=== PATIENT | male | born 1970 | race Caucasian/White ===

== ENCOUNTER 2016-10-19 20:31 | Emergency (ER) | payer MEDICAID ==
[~2016-10-19] VITALS: Ht 203.2 cm; Wt 79.1 kg
[~2016-10-19 20:31] MED LIST: ALBU18HF INH; AZIT250T PO; BENZ100C PO; SULF1TAB24 PO
[2016-10-19 20:33] VITALS: BP 119/79
[2016-10-19 22:19] LABS: HEMOGLOBIN 13.1 g/dL (13.7-18.0)
[2016-10-19 22:30] LABS: ASPARTATE AMINO TRANSFERASE 19 U/L (15-37); BLOOD UREA NITROGEN 11 mg/dL (7-18)
[2016-10-19] MEDS ORDERED: DIPHENHYDRAMINE 25 MG CAPSULE PO ONE (22:30)
[2016-10-19] MEDS ORDERED: KETOROLAC 30 MG/1 ML IM ONE (22:30)
[2016-10-19] MEDS ORDERED: KETOROLAC 30 MG/1 ML ONE (22:42)
[2016-10-19] MEDS ORDERED: DIPHENHYDRAMINE 25 MG CAPSULE ONE (22:42)
== END 2016-10-19 23:23 | disposition home or self-care (01) ==
LOC: ED 23:15
DX: S30.0XXA Contusion of lower back and pelvis, initial encounter (principal); S30.1XXA Contusion of abdominal wall, initial encounter; Y00.XXXA Assault by blunt object, initial encounter; Y93.89 Activity, other specified; Y92.89 Other specified places as the place of occurrence of the external cause; Y99.8 Other external cause status
CPT/HCPCS: 36415; 72110; 80053; 81003; 85025; 96372; 99285; J1885; Q0163

== ENCOUNTER 2016-11-01 11:19 | Emergency (ER) | payer MEDICAID ==
[~2016-11-01] VITALS: Ht 203.2 cm; Wt 78.0 kg
[2016-11-01 13:20] VITALS: BP 112/70
== END 2016-11-01 13:24 | disposition home or self-care (01) ==
LOC: ED 12:52
DX: S91.012A Laceration without foreign body, left ankle, initial encounter (principal); L03.116 Cellulitis of left lower limb; L23.9 Allergic contact dermatitis, unspecified cause; W26.0XXA Contact with knife, initial encounter; Y93.89 Activity, other specified; Y99.8 Other external cause status; Y92.89 Other specified places as the place of occurrence of the external cause
CPT/HCPCS: 99283

== ENCOUNTER 2016-11-23 01:43 | Emergency (ER) | payer MEDICAID ==
[~2016-11-23] VITALS: Ht 205.7 cm; Wt 75.1 kg
[2016-11-23] MEDS ORDERED: ALBUTEROL SULFATE 2.5 MG/3 ML ONE (02:16)
[2016-11-23] MEDS ORDERED: ALBUTEROL SULFATE 2.5 MG/3 ML NPPB ONE (02:30)
[2016-11-23 03:02] VITALS: BP 121/77
== END 2016-11-23 03:03 | disposition home or self-care (01) ==
LOC: ED 02:29
DX: J20.8 Acute bronchitis due to other specified organisms (principal)
CPT/HCPCS: 71020; 99284; J7613

== ENCOUNTER 2018-02-21 22:51 | Emergency (ER) | payer MEDICAID ==
[~2018-02-21] VITALS: Ht 205.7 cm; Wt 74.0 kg
[2018-02-21] MEDS ORDERED: IBUPROFEN 200 MG TABLET ONE (23:27)
[2018-02-21] MEDS ORDERED: HYDROcodone/APAP 5/325 TABLET ONE (23:27)
[2018-02-21] MEDS ORDERED: HYDROcodone/APAP 5/325 TABLET PO PRN (23:30)
[2018-02-21] MEDS ORDERED: IBUPROFEN 200 MG TABLET PO ONE (23:30)
[2018-02-22 00:28] VITALS: BP 105/71
== END 2018-02-22 01:31 | disposition home or self-care (01) ==
LOC: ED 23:49
DX: S70.02XA Contusion of left hip, initial encounter (principal); X58.XXXA Exposure to other specified factors, initial encounter; Y93.89 Activity, other specified; Y99.8 Other external cause status; Y92.89 Other specified places as the place of occurrence of the external cause
CPT/HCPCS: 99284

== ENCOUNTER 2018-11-29 02:11 | Emergency (ER) | payer MEDICAID ==
[~2018-11-29] VITALS: Ht 203.2 cm; Wt 76.0 kg
[2018-11-29 02:13] VITALS: BP 130/82
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
--- NOTE | 2018-11-29 02:55 | NUR ---
pt given dc instructions and script. pt educated regarding dc medication. pt's aox4. resps even and unlabored. pt amb to dc with steady gait. no acute distress at dc.
== END 2018-11-29 02:56 | disposition home or self-care (01) ==
LOC: ED 02:22
DX: L03.115 Cellulitis of right lower limb (principal)
CPT/HCPCS: 99283

== ENCOUNTER 2019-05-23 18:12 | Emergency (ER) | payer MEDICAID ==
[~2019-05-23] VITALS: Ht 205.7 cm; Wt 71.4 kg
[2019-05-23 18:14] VITALS: BP 121/71
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
[2019-05-23] MEDS ORDERED: SILVER SULF. CRM 1% , 25GM ONE (18:38)
[2019-05-23] MEDS ORDERED: NEOSPORIN OINT. PKT 1 PACKET ONE (18:39)
[2019-05-23] MEDS ORDERED: SILVER SULF. CRM 1% , 25GM TP ONE (19:00)
== END 2019-05-23 18:55 | disposition home or self-care (01) ==
LOC: ED 18:49
DX: T23.222A Burn of second degree of single left finger (nail) except thumb, initial encounter (principal); T31.0 Burns involving less than 10% of body surface; J44.9 Chronic obstructive pulmonary disease, unspecified; X08.8XXA Exposure to other specified smoke, fire and flames, initial encounter; Y93.89 Activity, other specified; Y92.89 Other specified places as the place of occurrence of the external cause; Y99.8 Other external cause status
CPT/HCPCS: 16020; 99284

== ENCOUNTER 2020-03-15 18:40 | Emergency (ER) | payer MEDICAID ==
[~2020-03-15] VITALS: Ht 205.7 cm; Wt 77.8 kg
[2020-03-15 18:41] VITALS: BP 104/74
--- NOTE | 2020-03-15 19:20 | NUR ---
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
--- NOTE | 2020-03-15 19:23 | NUR ---
INSPECTION AND TESTING SUPERVISOR: NO ANSWER WHEN CALLED
--- NOTE | 2020-03-15 19:45 | NUR ---
pt called to room not in lobby
--- NOTE | 2020-03-15 19:57 | NUR ---
pt not in lobby
== END 2020-03-15 19:59 | disposition left against medical advice (07) ==
LOC: ED 19:30
DX: H57.12 Ocular pain, left eye (principal); R21 Rash and other nonspecific skin eruption; Z53.21 Procedure and treatment not carried out due to patient leaving prior to being seen by health care provider

== ENCOUNTER 2020-03-17 05:00 | Emergency (ER) | payer MEDICAID ==
[~2020-03-17] VITALS: Ht 205.7 cm; Wt 78.0 kg
[2020-03-17 05:05] VITALS: BP 102/78
[2020-03-17] MEDS ORDERED: FLUORESCEIN OPHTHALMIC 1 MG STRIP ONE (05:26)
[2020-03-17] MEDS ORDERED: PROPARACAINE OPHTH 0.5%, 15ML ONE (05:27)
[2020-03-17] MEDS ORDERED: FLUORESCEIN OPHTHALMIC 1 MG STRIP EACHEYE ONE (05:30)
[2020-03-17] MEDS ORDERED: PROPARACAINE OPHTH 0.5%, 15ML EACHEYE ONE (05:30)
--- NOTE | 2020-03-17 06:55 | NUR ---
RECEIVED REPORT FROM ERIS. PT LAYING ON GURNEY WITH EYES CLOSED, RESPONDS APPROP TO STAFF, NAD, NO NEEDS AT THIS TIME, CALL LIGHT WITHIN REACH.
[2020-03-17] MEDS ORDERED: MOXIFLOXACIN OPHTH O.5%, 3ML RIGHTEYE SCH (07:00)
[2020-03-17] MEDS ORDERED: MOXIFLOXACIN OPHTH O.5%, 3ML RIGHTEYE ONE (07:30)
--- NOTE | 2020-03-17 07:35 | NUR ---
Patient given discharge instructions and Rx, they have confirmed that they understand the instructions. Patient ambulatory with steady gait.
== END 2020-03-17 07:39 | disposition home or self-care (01) ==
LOC: ED 06:52
DX: L03.311 Cellulitis of abdominal wall (principal); L03.312 Cellulitis of back [any part except buttock and flank]; H16.011 Central corneal ulcer, right eye; B86 Scabies; J44.9 Chronic obstructive pulmonary disease, unspecified
CPT/HCPCS: 99283; Q0177

== ENCOUNTER 2020-05-29 01:25 | Emergency (ER) | payer MEDICAID ==
[~2020-05-29] VITALS: Ht 205.7 cm; Wt 75.1 kg
[2020-05-29 01:28] VITALS: BP 104/75
--- NOTE | 2020-05-29 02:44 | NUR ---
QUALITY CONTROL COORDINATOR: PT WALKED BACK FROM LOBBY TO ROOM AT THIS TIME.
[2020-05-29] MEDS ORDERED: LIDOCAINE-MPF 1%, 5ML ONE (03:07)
[2020-05-29] MEDS ORDERED: LIDOCAINE-MPF 1%, 5ML INFIL ONE (03:30)
== END 2020-05-29 04:09 | disposition home or self-care (01) ==
LOC: ED 01:55
DX: L05.01 Pilonidal cyst with abscess (principal); F17.210 Nicotine dependence, cigarettes, uncomplicated
CPT/HCPCS: 10080; 99283; 99406

== ENCOUNTER 2021-04-11 08:22 | Emergency (ER) | payer MEDICAID ==
[~2021-04-11] VITALS: Ht 205.7 cm; Wt 83.7 kg
[~2021-04-11 08:22] MED LIST changes: +SULF-23 PO; -SULF1TAB24 PO
[2021-04-11 08:46] VITALS: BP 93/64
[2021-04-11] MEDS ORDERED: DOXYCYCLINE 100MG TABLET PO ONE (09:30)
[2021-04-11] MEDS ORDERED: KETOROLAC 30 MG/1 ML IM ONE (09:30)
[2021-04-11] MEDS ORDERED: DOXYCYCLINE 100MG TABLET ONE (09:37)
[2021-04-11] MEDS ORDERED: KETOROLAC 30 MG/1 ML ONE (09:37)
[2021-04-11 09:52] LABS: BASOPHILS % (AUTO) 1 % (0-1); EOSINOPHILS % (AUTO) 3 % (1-7); LYMPHOCYTES % (AUTO) 31 % (22-44); MEAN CORPUSCULAR HEMOGLOBIN 30.2 pg (27.5-34.5); MEAN CORPUSCULAR HGB CONC 33.9 g/dL (33.2-36.2); MONOCYTES % (AUTO) 11 % (2-9); NEUTROPHILS % (AUTO) 54 % (42-75); PLATELET COUNT 323 x10^3/uL (130-400); RED BLOOD COUNT 4.16 x10^6/uL (4.38-5.82); RED CELL DISTRIBUTION WIDTH 14.8 % (9.4-14.8)
[2021-04-11 10:03] LABS: ALBUMIN 3.3 g/dL (3.4-5.0); ANION GAP 7 mmol/L (5-15); CALCIUM 8.6 mg/dL (8.5-10.1); CHLORIDE 106 mmol/L (98-107); CREATININE 0.76 mg/dL (0.7-1.3)
== END 2021-04-11 10:52 | disposition home or self-care (01) ==
LOC: ED 09:01
DX: L03.115 Cellulitis of right lower limb (principal); J44.9 Chronic obstructive pulmonary disease, unspecified
CPT/HCPCS: 36415; 73630; 80048; 82040; 85025; 96372; 99284; J1885

== ENCOUNTER 2021-04-13 12:55 | Emergency (ER) | payer MEDICAID ==
[~2021-04-13] VITALS: Ht 205.7 cm; Wt 82.0 kg
[2021-04-13 13:16] VITALS: BP 102/71
[2021-04-13] MEDS ORDERED: BACITRACIN ZINC OINT 500U/GM, 0.9 GM ONE (13:28)
--- NOTE | 2021-04-13 13:43 | NUR ---
WAS INSTRUCTED BY PARUL SOLIS, TO CONT ABX FOR 2 MORE DAYS AND IF WOUND NOT GETTING BETTER TO RETURN TO ER FOR RECHECK. PT VERBALIZED UNDERSTANDING. PT LEFT WITHOUT WRITTEN DC INSTRUCTIONS.
== END 2021-04-13 13:45 | disposition home or self-care (01) ==
LOC: ED 13:33
DX: Z48.01 Encounter for change or removal of surgical wound dressing (principal); J44.9 Chronic obstructive pulmonary disease, unspecified
CPT/HCPCS: 99281